=== PATIENT | female | born 1975 | race Caucasian/White ===

== ENCOUNTER 2021-05-06 09:30 | Emergency (ER) | payer OTHER, BC ==
[~2021-05-06] VITALS: Ht 152.4 cm; Wt 52.7 kg
--- NOTE | 2021-05-06 10:10 | NUR ---
PT SITTING ON END OF CRAIG, A&OX4, RESP EVEN & UNLABORED, SPEECH CLEAR, SKIN WNL. LABS DRAWN PER [employer]ER. URINE SPECIMEN GIVEN TO [employer]ER. PT'S FEMALE FRIEND IN ROOM. PT NOW TO CT PER CRAIG.
[2021-05-06 10:16] LABS: BASOPHILS % (AUTO) 1 % (0-1); EOSINOPHILS % (AUTO) 1 % (1-7); LYMPHOCYTES % (AUTO) 24 % (22-44); MEAN CORPUSCULAR HEMOGLOBIN 33.3 pg (27.0-34.8); MEAN CORPUSCULAR HGB CONC 34.3 g/dL (32.4-35.8); MONOCYTES % (AUTO) 5 % (2-9); NEUTROPHILS % (AUTO) 70 % (42-75); PLATELET COUNT 259 x10^3/uL (130-400); RED BLOOD COUNT 3.87 x10^6/uL (3.82-5.3); RED CELL DISTRIBUTION WIDTH 12.2 % (9.6-15.2)
[2021-05-06 10:18] LABS: MICROSCOPIC INDICATED
--- NOTE | 2021-05-06 10:20 | NUR ---
PT RETURNED TO ED ROOM PER CRAIG. C/O RLQ PAIN RADIATING TO RT FLANK; STARTED THIS AM. NO PAIN MED TAKEN. DENIES UTI SX, N/V, ABD HX. STATES "I'VE BEEN DEALING W/ HEMATURIA FOR 2 WEEKS BUT I'M WORKING THROUGH IT WITH MY DOCTOR." HX KIDNEY STONE AGE 12.
[2021-05-06] MEDS ORDERED: CETI10TA76 PO (10:23)
[2021-05-06 10:26] LABS: ANION GAP 8 mmol/L (5-15); CALCIUM 9.6 mg/dL (8.5-10.1); CHLORIDE 105 mmol/L (98-107); CREATININE 0.74 mg/dL (0.55-1.02)
[2021-05-06 10:31] VITALS: BP 122/66
--- NOTE | 2021-05-06 10:31 | NUR ---
LAST BM: THIS MORNING. LAST ORAL INTAKE: 2675 "A COUPLE SIPS OF MY SMOOTHIE".
== END 2021-05-06 10:54 | disposition home or self-care (01) ==
LOC: ED 10:08
DX: N13.2 Hydronephrosis with renal and ureteral calculous obstruction (principal)
CPT/HCPCS: 36415; 74176; 80048; 81001; 85025; 87086; 99284